=== PATIENT | female | born 1995 | race Two or more races ===

== ENCOUNTER 2019-12-10 14:15 | Observation (INO) | payer MEDICAID ==
[~2019-12-10] VITALS: Ht 157.5 cm; Wt 68.0 kg
== END 2019-12-10 16:30 | disposition home or self-care (01) ==
LOC: 8 EST LDRP 14:15
PROVIDERS: ADMIT Obstetrics & Gynecology; ATTEND Obstetrics & Gynecology
DX: O26.893 Other specified pregnancy related conditions, third trimester (principal); R10.9 Unspecified abdominal pain; Z3A.35 35 weeks gestation of pregnancy
CPT/HCPCS: 99281; G0378; 94640

== ENCOUNTER 2019-12-14 15:57 | Inpatient (IN) | payer MEDICAID ==
[~2019-12-14] VITALS: Ht 157.5 cm; Wt 68.0 kg
[2019-12-14] MEDS ORDERED: DEXT 5%/LR + PITOCIN 20UNITS/L 1,000 ML IV SCH (16:33)
[2019-12-14] MEDS ORDERED: METHYLERGONOVINE MALEATE 0.2 MG/ML IM PRN (16:45)
[2019-12-14] MEDS ORDERED: CARBOPROST TROMETHAMINE 250 MCG/ML AMPUL IM PRN (16:45)
[2019-12-14] MEDS ORDERED: BUTORPHANOL TARTRATE 2 MG/ML VIAL IV PRN (16:45)
[2019-12-14] MEDS ORDERED: NALOXONE HCL 0.4 MG/ML 1ML VIAL IM PRN (16:45)
[2019-12-14] MEDS ORDERED: LIDOCAINE HCL 1% 20ML VIAL (Pyxis) INJ INFIL SCH (16:45)
[2019-12-14] MEDS: LACTATED RINGERS 1,000 ML IV SCH ×2 (16:58→17:17)
[2019-12-14] MEDS ORDERED: AMPICILLIN 2,000 MG in SODIUM CHLORIDE 0.9% 100 ML IV SCH (17:00)
[2019-12-14 17:11] LABS: CLARITY URINE CLEAR (CLEAR); COLOR URINE YELLOW (YELLOW); KETONES URINE TRACE (NEGATIVE); LEUKOCYTE ESTERASE URINE NEGATIVE (NEGATIVE); NITRITE URINE NEGATIVE (NEGATIVE); OCCULT BLOOD URINE NEGATIVE (NEGATIVE); PH URINE 5.5 (4.5-8.0); PROTEIN URINE NEGATIVE (NEGATIVE); SPECIFIC GRAVITY URINE 1.027 (1.005-1.030)
[2019-12-14 17:22] LABS: BASOPHILS % 0.2 % (0.0-2.0); EOSINOPHILS % 0.5 % (0.0-5.0); HEMATOCRIT. 32.9 % (36.0-48.0); HEMOGLOBIN. 11.5 g/dL (12.0-16.0); LYMPHOCYTES % 27.3 % (20.0-50.0); MEAN CORPUSCULAR HEMOGLOBIN 29.8 pg (28.0-32.0); MEAN CORPUSCULAR VOLUME 85.5 fL (81.0-99.0); MEAN PLATELET VOLUME 8.8 fl (7.4-10.4); MONOCYTES % 5.6 % (2.0-8.0); NEUTROPHILS % 66.4 % (40.0-76.0); PLATELET 268 x1000/uL (130-400); RED BLOOD CELL COUNT 3.84 mill/uL (4.2-5.4); RED CELL DISTRIBUTION WIDTH 14.4 % (11.6-14.6)
[2019-12-14 17:23] LABS: *AMPHETAMINES SCREEN URINE NEGATIVE (NEGATIVE)
[2019-12-14 17:23] LABS: PARTIAL THROMBOPLASTIN TIME 26.6 sec (23.4-31.0); PROTHROMBIN TIME 10.2 sec (9.6-11.0)
[2019-12-14 17:24] LABS: *BARBITURATES SCREEN URINE NEGATIVE (NEGATIVE); *BENZODIAZEPINES SCREEN URINE NEGATIVE (NEGATIVE); *COCAINE SCREEN URINE NEGATIVE (NEGATIVE); METHADONE URINE SCREEN NEGATIVE (NEGATIVE); OPIATES URINE SCREEN NEGATIVE (NEGATIVE); PHENCYCLIDINE URINE SCREEN NEGATIVE (NEGATIVE)
[2019-12-14 17:25] LABS: CANNABINOID URINE SCREEN NEGATIVE (NEGATIVE)
[2019-12-14] MEDS: MISOPROSTOL 100MCG TABLET PO SCH ×2 (17:29→21:27)
[2019-12-14 17:54] LABS: HEPATITIS B SURFACE ANTIGEN NEGATIVE
[2019-12-15] MEDS ORDERED: FENTANYL CITRATE/PF 50MCG/ML 2ML VIAL ONE (01:08)
[2019-12-15] MEDS ORDERED: BUPIVACAINE HCL/PF 0.25% (2.5MG/ML) 10ML ONE (01:09)
[2019-12-15] MEDS ORDERED: ROPIVACAINE HCL/PF EPIDURAL 200 ML EPI SCH (01:15)
[2019-12-15] MEDS ORDERED: ROPIVACAINE HCL 2MG/ML (0.2%) 200ML BOTTLE IR ONE (01:15)
[2019-12-15] MEDS ORDERED: DEXT 5%/LR + PITOCIN 20UNITS/L 1,000 ML IV SCH (02:31)
[2019-12-15] MEDS ORDERED: HEMORRHOIDAL SUPP PR PRN (02:45)
[2019-12-15] MEDS ORDERED: LANOLIN OINT 7GM TUBE TOP PRN (02:45)
[2019-12-15] MEDS ORDERED: BISACODYL 10MG SUPP PR PRN (02:45)
[2019-12-15] MEDS ORDERED: ACETAMINOPHEN WITH CODEINE 300/30MG TABLET PO PRN (02:45)
[2019-12-15] MEDS ORDERED: IBUPROFEN 400MG TABLET PO PRN (02:45)
[2019-12-15] MEDS ORDERED: METHYLERGONOVINE MALEATE 0.2 MG/ML IM PRN (02:45)
[2019-12-15] MEDS ORDERED: BENZOCAINE/LANOLIN/ALOE VERA SPRAY TOP PRN (02:45)
[2019-12-15] MEDS ORDERED: DIPHENHYDRAMINE 25MG CAPSULE PO PRN (02:45)
[2019-12-15] MEDS ORDERED: GLYCERIN/WITCH HAZEL LEAF MEDICATED PAD TOP PRN (02:45)
[2019-12-15 04:00] VITALS: BP 115/62
[2019-12-15 04:30] VITALS: BP 118/59
[2019-12-15 08:30] VITALS: BP 136/73
[2019-12-15 08:54] LABS: BASOPHILS % 0.2 % (0.0-2.0); EOSINOPHILS % 0.1 % (0.0-5.0); HEMOGLOBIN. 10.7 g/dL (12.0-16.0); LYMPHOCYTES % 11.9 % (20.0-50.0); MEAN CORPUSCULAR HEMOGLOBIN 29.6 pg (28.0-32.0); MEAN CORPUSCULAR VOLUME 85.3 fL (81.0-99.0); MEAN PLATELET VOLUME 8.3 fl (7.4-10.4); MONOCYTES % 6.1 % (2.0-8.0); NEUTROPHILS % 81.7 % (40.0-76.0); PLATELET 225 x1000/uL (130-400); RED BLOOD CELL COUNT 3.63 mill/uL (4.2-5.4)
[2019-12-15] MEDS: PRENATAL VIT/FE FUMARATE/FA TABLET PO SCH (17:05)
[2019-12-15] MEDS: IBUPROFEN 800MG TABLET PO PRN (17:05)
[2019-12-15] MEDS: SIMETHICONE 80MG TABLET CHEW PO SCH ×2 (17:06→21:00)
[2019-12-15 17:52] VITALS: BP 129/87
[2019-12-15 19:30] VITALS: BP 114/75
[2019-12-15] MEDS ORDERED: DOCUSATE SODIUM 100MG CAPSULE PO SCH (21:00)
[2019-12-16 04:00] VITALS: BP 114/72
[2019-12-16] MEDS ORDERED: FERROUS SULFATE 325MG TABLET PO SCH (07:30)
[2019-12-16] MEDS: IBUPROFEN 800MG TABLET PO PRN (07:31)
[2019-12-16 09:00] VITALS: BP 110/79
[2019-12-16] MEDS: PRENATAL VIT/FE FUMARATE/FA TABLET PO SCH (09:21)
[2019-12-16] MEDS: SIMETHICONE 80MG TABLET CHEW PO SCH (09:21)
== END 2019-12-16 14:35 | disposition home or self-care (01) | DRG 560 ==
LOC: 8 EST LDRP 15:57 → OBSVTOIN 15:57 → 8EST 12-15 04:51
PROVIDERS: ADMIT Obstetrics & Gynecology; ATTEND Obstetrics & Gynecology
PROC: 10E0XZZ Delivery of Products of Conception, External Approach (ICD-10-PCS; principal; 2019-12-15)
PROC: 0HQ9XZZ Repair Perineum Skin, External Approach (ICD-10-PCS; 2019-12-15)
PROC: 3E0R3BZ Introduction of Anesthetic Agent into Spinal Canal, Percutaneous Approach (ICD-10-PCS; 2019-12-15)
PROC: 00HU33Z Insertion of Infusion Device into Spinal Canal, Percutaneous Approach (ICD-10-PCS; 2019-12-15)
DX: O42.913 Preterm premature rupture of membranes, unspecified as to length of time between rupture and onset of labor, third trimester (principal); O70.0 First degree perineal laceration during delivery; O69.81X0 Labor and delivery complicated by cord around neck, without compression, not applicable or unspecified; Z37.0 Single live birth; Z3A.36 36 weeks gestation of pregnancy
CPT/HCPCS: 36415; 80305; 81003; 85025; 86592; 86703; 86762; 86850; 86900; 87340; 99281; G0378; J0290; J2590; J2795; J3010; J3490; J7050; J7120